=== PATIENT | female | born 1975 | race Caucasian/White ===

== ENCOUNTER 2018-11-04 09:38 | Day surgery (SDC) | payer OTHER ==
[2018-11-03 11:44] VITALS: BMI 32.8
--- NOTE | 2018-11-04 10:34 | HP ---
Past Medical History - Primary Care Physician PCP:: Michael Vela - Admission Chief Complaint: 43yo P2 with infertility and found to have a uterine mass ( possible fibroid or polyp) admitted for hysteroscopy and polypectomy/myomectomy. History of Present Illness: HSG in 10/2017 noted a submucosal fibroid or polyp. pt with infertility. She declined saline HSN or another HSG History Source: Patient, Medical Record Limitations to Obtaining History: No Limitations - Past Medical History [employer]: No: Alzheimer's, CVA, Dementia, Migraine, Multiple Sclerosis, Peripheral Neuropathy, Parkinson's, Seizure, Syncope, TIA, Vertigo, Other Cardiovascular: No: AFIB, Aneurysm, Aortic Insufficiency, Aortic Stenosis, CAD, CHF, Deep Vein Thrombosis, HTN, Hyperlipdemia, AK, Mitral Insufficiency, Mitral Stenosis, Murmur, Pulmonary Hypertension, Other Pulmonary: No: Asthma, Bronchitis, Cancer, COPD, O2 Dependent, Pneumonia, Previously Intubated, Pulmonary Embolus, Pulmonary Fibrosis, Sleep Apnea, Other Gastrointestinal: No: Ascites, Cancer, Constipation, Crohn's Disease, Diverticulitis, Diverticulosis, Esophageal Varices, Gastritis, GERD, GI Bleed, Hemorrhoids, Hiatal Hernia, Inflamatory Bowel Disease, Irritable Bowel Disease, Pancreatitis, Peptic Ulcer Disease, Ulcerative Colitis, Other Hepatobiliary: No: Cirrhosis, Cholelithiasis, Cholecystitis, Choledocholithiasis , Hepatitis A, Hepatitis B, Hepatitis C, Other Renal/: No: Renal Failure, Renal Inusuff, BPH, Cancer, Hematuria, Hemodialysis , Neurogenic Bladder, Renal Calculi, UTI, Other Reproductive: No: Ectopic , Endometriosis, Fibroids, PID, Polycystic Ovary Syndrome, Postmenopausal, Other ...Para: 2 ( x 2) ...Induced : 1 Heme/Onc: No: Anemia, B12 Deficiency, Bleeding Disorder, Cancer, Current Chemotherapy, Current Radiation Therapy, Hemochromatosis, Hypercoaguable State, Myeloproliferative Synd, Sickle Cell Disease, Sickle Cell Trait, Thrombocytopenia, Other Infectious Disease: No: AIDS, C-Diff, Herpes Zoster, HIV, MRSA, STD's, Tuberculosis, VREF, Other Psych: No: Addictions, Anxiety, Bipolar, Depression, Panic, Psychosis, Schizophrenia, Other Musculoskeletal: No: Bursitis, Chronic low back pain, Hemiparesis, Hemiplegia, Osteoarthritis, Paraplegia, Other Rheumatology: No: Fibromyalgia, Gout, Lupus, Rheumatoid Arthritis, Sarcoidosis, Vasculitis, Other ENT: No: Allergic Rhinitis, Sinusitis, Other Endocrine: Yes: Hypothyroidism Dermatology: No: Basal Cell, Cellulitis, Eczema, Melanoma, Psoriasis, Squamous Cell - Past Surgical History Past Surgical History: Yes: None Hx Myomectomy: No Hx Transabdominal Cerclage: No Additional Surgical History: Left foot bunion fixation - Smoking History Smoking history: Never smoked Have you smoked in the past 12 months: No - Alcohol/Substance Use Hx Alcohol Use: No History of Substance Use: reports: None - Social History Usual Living Arrangement: Yes: With Spouse ADL: Independent History of Recent Travel: No Home Medications - Allergies Allergies/Adverse Reactions: Allergies Allergy/AdvReac Type Severity Reaction Status Date / Time No Known Allergies Allergy Verified 11/04/18 09:52 - Home Medications Home Medications: Ambulatory Orders Levothyroxine [Synthroid -] 1 tab PO ASDIR 11/03/18 Family Disease History - Family Disease History Family Disease History: Heart Disease: Mother, Other: Father (CVA) Review of Systems - Review of Systems Constitutional: reports: No Symptoms Eyes: reports: No Symptoms HENT: reports: No Symptoms Neck: reports: No Symptoms Cardiovascular: reports: No Symptoms Respiratory: reports: No Symptoms Gastrointestinal: reports: No Symptoms Genitourinary: reports: No Symptoms Breasts: reports: No Symptoms Reported Musculoskeletal: reports: No Symptoms Integumentary: reports: No Symptoms Neurological: reports: No Symptoms Endocrine: reports: No Symptoms Hematology/Lymphatic: reports: No Symptoms Psychiatric: reports: No Symptoms Pain Intensity: 0 Physical Exam-[employer] Vital Signs: Vital Signs Temperature 98.3 F 11/04/18 09:48 Pulse Rate 73 11/04/18 09:48 Respiratory Rate 18 11/04/18 09:48 Blood Pressure 117/71 11/04/18 09:48 O2 Sat by Pulse Oximetry (%) 100 11/04/18 09:48 Constitutional: Yes: Well Nourished, No Distress, Calm Eyes: Yes: WNL, Conjunctiva Clear HENT: Yes: WNL, Atraumatic, Normocephalic Neck: Yes: WNL, Supple, Trachea Midline Cardiovascular: Yes: WNL, Regular Rate and Rhythm Respiratory: Yes: WNL, Regular, CTA Bilaterally Gastrointestinal: Yes: WNL, Normal Bowel Sounds, Soft ...Rectal Exam: Yes: Deferred Renal/: Yes: WNL Pelvis: Yes: WNL External Genitalia: Yes: Normal Internal Exam Deferred: No Vaginal Exam: Yes: Normal Cervix: Yes: Normal Uterus: Yes: Normal Adnexa: Normal: Left, Right Musculoskeletal: Yes: WNL Extremities: Yes: WNL Edema: No Integumentary: Yes: WNL Neurological: Yes: WNL, Alert, Oriented ...Motor Strength: WNL Psychiatric: Yes: WNL, Alert, Oriented Imaging - Results Other: Report Reviewed Assessment/Plan 43yo P2 with infertility and found to have a uterine mass (possible fibroid or polyp) admitted for hysteroscopy and polypectomy/myomectomy. We had discussed the risks, benefits, alternatives of surgery at length including but not limited to infection, bleeding, scarring, perforation, amenorrhea, infertility, hysterectomy, etc. The pt verbalized understanding and requested to proceed with surgery. I emphasized that all surgeries have risks and no guarantees can be provided.
[2018-11-04] MEDS ORDERED: PROPOFOL 20 ML ONE (10:35)
[2018-11-04] MEDS ORDERED: MIDAZOLAM HCL 2 MG/2 ML SINGLE DOSE VIAL ONE (10:35)
[2018-11-04] MEDS ORDERED: LIDOCAINE HCL/PF 2% SDV 5ML VIAL ONE (10:42)
[2018-11-04] MEDS ORDERED: DEXAMETHASONE SOD PHOSPHATE 4 MG/1 ML VIAL ONE (10:42)
[2018-11-04] MEDS ORDERED: KETOROLAC TROMETHAMINE 30 MG/1 ML VIAL ONE (10:42)
[2018-11-04] MEDS ORDERED: ceFAZolin SODIUM 1 GM VIAL IVPB ONE (10:50)
[2018-11-04] MEDS ORDERED: PROMETHAZINE HCL 25 MG/1 ML VIAL IVPB PRN (11:36)
[2018-11-04] MEDS ORDERED: ACETAMINOPHEN 500 MG TABLET (FP) PO PRN (11:36)
[2018-11-04] MEDS ORDERED: LACTATED RINGERS SOLUTION 1,000 ML IV SCH (11:45)
[2018-11-04] MEDS ORDERED: LEVOTHYROXINE PO SCH (12:00)
--- NOTE | 2018-11-04 12:02 | OP ---
Operative Note - Note: Operative Date: 11/04/18 Pre-Operative Diagnosis: Uterine polyps, infertility Operation: Hysteroscopy, polypectomy, D&C Findings: Multiple uterine polyp Post-Operative Diagnosis: Same as Pre-op Surgeon: Michael Vela Anesthesiologist/SUBJECT SCIENTIFIC RESEARCH: Soren Vargas Anesthesia: General Specimens Removed: Endometrial polyps, endometrial curettings Estimated Blood Loss (mls): 10 Blood Volume Replaced (mls): 0 Fluid Volume Replaced (mls): 800 Operative Report Dictated: Yes
[2018-11-04] MEDS ORDERED: ACETAMINOPHEN INJECTION 100 ML IVPB ONE (12:12)
[2018-11-04 13:13] VITALS: TEMP 97.5
[2018-11-04 16:11] VITALS: BP 126/76; PULSE 76
--- NOTE | 2018-11-05 10:15 | OP ---
DATE OF OPERATION: 11/04/2018 PREOPERATIVE DIAGNOSES: 1. Uterine polyps. 2. Infertility. POSTOPERATIVE DIAGNOSES: 1. Uterine polyps. 2. Infertility. PROCEDURE: Hysteroscopy, polypectomy, dilation and curettage. SURGEON: Pradip Joel MD BARREL POLISHER INSIDE: None. ANESTHESIOLOGIST: APARNA Hines ANESTHESIA TYPE: General. INTRAVENOUS FLUIDS: 800 mL. ESTIMATED BLOOD LOSS: 10 mL. PATHOLOGY: Endometrial polyps and endometrial curettings. DESCRIPTION OF THE PROCEDURE: The patient was met preoperatively. Risks, benefits, alternatives of surgery were discussed in details. All questions were answered. The patient was brought to the OR with IV running. She was placed on the surgical table in the supine position. The general anesthesia was achieved without difficulty. The patient was then placed in a dorsal lithotomy position. Using adjustable Raymon stirrups she was examined under anesthesia. A small mobile uterus was noted. No pelvic or adnexal masses were noted. The patient was then prepped and draped in the usual sterile fashion. A timeout was conducted as per standard protocol. The surgeon then proceeded with the operation. A weighted speculum was introduced inside the vagina with good visualization of the cervix. The cervix was grasped with a single-tooth tenaculum. The cervical os was dilated to accommodate a size 23 Quach dilator. A hysteroscope was then introduced inside the uterine cavity. Multiple polyps were noted. A Symphion resectoscope was then used to remove all of the uterine polyps. Once this was completed the hysteroscope was removed from the patient. A uterine curettage was performed. The tissue was sent to Pathology. A repeat hysteroscopy was then done and a normal uterine cavity was noted. Good hemostasis was observed. All of the instruments were then removed from the patient. Once again good hemostasis was confirmed. Sponge, lap and instrument counts were correct. The patient was returned to supine position and transferred to recovery room in stable condition and awake. PRADIP JOEL M.D. [id number]
--- NOTE | 2018-11-09 19:38 | PATH ---
Surgical Pathology Report Patient Name: SINDY LAMBERT [facility]. Rec. #: [id number] /Age/Gender: 1975 (Age: 43) / F Account: [id number] Location: [facility] SURGICAL Taken: 11/04/2018 Received: 11/04/2018 Reported: 11/09/2018 Physicians: Michael Vela M.D. Specimen(s) Received A: ENDOMETRIAL CURETTINGS B: ENDOMETRIAL POLYP Clinical History Endometrial polyps Final Diagnosis A. ENDOMETRIAL CURETTINGS, DILATION AND CURETTAGE: FRAGMENTS OF PROLIFERATIVE ENDOMETRIUM AND BENIGN CERVICAL TISSUE ADMIXED WITH BLOOD B. ENDOMETRIAL POLYP, POLYPECTOMY: POLYPOID FRAGMENTS OF PROLIFERATIVE ENDOMETRIUM SUGGESTIVE OF ENDOMETRIAL POLYP AND CHRONIC ENDOMETRITIS. BENIGN CERVICAL TISSUE. Comment: Immunohistochemical stain performed at [place], [place] ([id number]) and interpreted at [facility] show plasma cells are highlighted by [id number]. Positive and negative controls (internal if applicable) show appropriate results. Electronically Signed Kiley Stuart M.D. Gross Description A. Received in formalin labeled "endometrial curettings," is a 1.1 x 0.9 x 0.2 cm aggregate of hayden red soft tissue fragments. The formalin is filtered and the specimen is entirely submitted in one cassette. B. Received in formalin labeled "endometrial polyp," is a 3.0 x 2.8 x 0.4 cm aggregate of hayden soft tissue fragments admixed with blood clot. The formalin is filtered and the specimen is entirely submitted in 2 cassettes. DL/11/04/2018 saudi/11/04/2018
== END 2018-11-04 14:30 | disposition home or self-care (01) ==
LOC: JASU-SURG 09:38
PROVIDERS: ATTEND Obstetrics & Gynecology
PROC: 0UDB7ZX Extraction of Endometrium, Via Natural or Artificial Opening, Diagnostic (ICD-10-PCS; principal; 2018-11-04 11:00)
PROC: 0UJD8ZZ Inspection of Uterus and Cervix, Via Natural or Artificial Opening Endoscopic (ICD-10-PCS; 2018-11-04 11:00)
DX: N84.0 Polyp of corpus uteri (principal); N97.9 Female infertility, unspecified
CPT/HCPCS: 86850; 86900; 86901; 88305-TC; 94760; J0131